=== PATIENT | female | born 1995 | race Caucasian/White ===

== ENCOUNTER 2023-12-10 22:26 | Emergency (ER) | payer MEDICAID ==
[~2023-12-10] VITALS: Ht 152.4 cm; Wt 61.2 kg
[2023-12-10 23:13] VITALS: BP_SYST 109; PULSE 126; RESP 16; TEMP 99.5; O2SAT 98
[2023-12-11] MEDS ORDERED: DEXAMETHASONE SOD PHOSPHATE 10 MG/ML VIAL IVP ONE (01:30)
[2023-12-11 02:06] LABS: BASOPHILS % (AUTO) 0.2 % (0.0-2.0); EOSINOPHILS % (AUTO) 0.1 % (0.0-4.0); HEMATOCRIT 42.8 % (36-48); HEMOGLOBIN 14.6 g/dL (12.0-16.0); LYMPHOCYTES # (AUTO) 1.1 K/uL (1.0-5.5); LYMPHOCYTES % (AUTO) 5.1 % (20.5-51.5); MEAN CORPUSCULAR HEMOGLOBIN 32 pg (27-31); MEAN CORPUSCULAR HGB CONC 34 % (32-36); MEAN CORPUSCULAR VOLUME 93 fL (79.0-98.0); MONOCYTES # (AUTO) 0.9 K/uL (0.0-1.0); MONOCYTES % (AUTO) 4.3 % (1.7-9.3); NEUTROPHILS # (AUTO) 20.1 K/uL (1.8-7.7); NEUTROPHILS % (AUTO) 90.3 % (40.0-70.0); PLATELET COUNT (AUTO) 324 K/uL (130-430); RED BLOOD CELL COUNT(AUTO) 4.62 MIL/uL (4.2-6.2); RED CELL DISTRIBUTION WIDTH 13.4 % (9.0-15.0); WHITE BLOOD COUNT (AUTO) 22.2 K/uL (4.8-10.8)
[2023-12-11] MEDS: DEXAMETHASONE SOD PHOSPHATE 10 MG/ML VIAL PO ONE (02:06)
[2023-12-11] MEDS: ONDANSETRON HCL 4 MG/2 ML VIAL IVP ONE (02:08)
[2023-12-11] MEDS: KETOROLAC TROMETHAMINE 30 MG VIAL IVP ONE (02:09)
[2023-12-11] MEDS: NACL 0.9% 1,000 ML IV ONE (02:15)
[2023-12-11 02:16] LABS: CALCIUM 9.7 mg/dL (8.4-11.0); CREATININE 0.64 mg/dL (0.55-1.30); POTASSIUM 3.5 mmol/L (3.5-5.1)
[2023-12-11] MEDS ORDERED: iohexoL 350 mgI/mL, 100 ML INFUS..BTL IV ONE (02:49)
[2023-12-11 03:08] LABS: COVID19 ANTIGEN SOFIA FIA NEGATIVE (NEGATIVE)
[2023-12-11 03:17] LABS: INFLUENZA TYPE A NEGATIVE (NEGATIVE); INFLUENZA TYPE B NEGATIVE (NEGATIVE)
[2023-12-11 03:19] LABS: STREPTOCOCCUS A SCREEN (RAPID) POSITIVE (NEGATIVE)
[2023-12-11 03:26] LABS: BILIRUBIN,URINE 1+ (NEGATIVE); BLOOD, URINE NEGATIVE (NEGATIVE); CLARITY/URINE SL CLOUDY (CLEAR); COLOR,URINE YELLOW (YELLOW); GLUCOSE,URINE NEGATIVE (NEGATIVE); KETONES,URINE 3+ (NEGATIVE); LEUKOCYTE ESTERASE ,URINE 2+ (NEGATIVE); NITRITE, URINE NEGATIVE (NEGATIVE); PROTEIN URINE TRACE (NEGATIVE); UROBILINOGEN,URINE 0.2 (0.2-1.0)
[2023-12-11 03:41] LABS: BACTERIA,URINE MANY /HPF (None Seen); RBC,URINE 0-3 /HPF (0-3); WBC,URINE 20-50 /HPF (0-3)
[2023-12-11] MEDS: AMOXICILLIN 500 MG CAPSULE PO ONE (03:47)
[2023-12-11] MEDS ORDERED: AMOX500C2 PO (05:23)
[2023-12-11] MEDS ORDERED: ONDA-8 TL (05:23)
[2023-12-11 05:36] VITALS: BP_SYST 108; PULSE 105; RESP 20; TEMP 98.8; O2SAT 95
== END 2023-12-11 05:42 | disposition home or self-care (01) ==
LOC: SED 22:26
DX: J02.9 Acute pharyngitis, unspecified (principal); M79.10 Myalgia, unspecified site; Z79.899 Other long term (current) drug therapy; Z20.822 Contact with and (suspected) exposure to COVID-19
CPT/HCPCS: 99285; 87426; 80048; 81001; 85025; 86403; 87086; 36415; 81025; 87804 ×2; 81000; 96374; 70491; 96361; 96375; 81015; J1100; J1885; J2405; Q9967; J7030

== ENCOUNTER 2024-01-08 15:52 | Emergency (ER) | payer MEDICAID ==
[~2024-01-08] VITALS: Ht 152.4 cm; Wt 60.8 kg
[~2024-01-08 15:52] MED LIST: AMOX500C2 PO; ONDA-8 TL
[2024-01-08 16:02] VITALS: BP_SYST 110; PULSE 98; RESP 22; TEMP 97.5; O2SAT 96
[2024-01-08 16:54] LABS: COVID19 ANTIGEN SOFIA FIA NEGATIVE (NEGATIVE); INFLUENZA TYPE A Negative (NEGATIVE); INFLUENZA TYPE B NEGATIVE (NEGATIVE)
[2024-01-08] MEDS ORDERED: PSEU30TA36 PO (17:12)
[2024-01-08] MEDS ORDERED: ALBMDI INH (17:12)
[2024-01-08 17:44] VITALS: BP_SYST 110; PULSE 98; RESP 22; TEMP 97.5; O2SAT 96
== END 2024-01-08 17:42 | disposition home or self-care (01) ==
LOC: SED 15:52
DX: J40 Bronchitis, not specified as acute or chronic (principal); R05.9 Cough, unspecified; R09.89 Other specified symptoms and signs involving the circulatory and respiratory systems; Z79.899 Other long term (current) drug therapy; Z20.822 Contact with and (suspected) exposure to COVID-19
CPT/HCPCS: 36415; 71045; 99284